=== PATIENT | female | born 1980 | race Caucasian/White ===

== ENCOUNTER 2016-12-25 03:02 | Inpatient (IN) | payer OTHER ==
[2016-12-25] MEDS ORDERED: Lidocaine 1% 50 ML MDV INJECT PRN (03:31)
[2016-12-25] MEDS ORDERED: Terbutaline 1 MG/ML SDV SUBCUT PRN (03:31)
[2016-12-25] MEDS ORDERED: Carboprost Tromethamine 250 MCG/1 ML Amp IM PRN (03:31)
[2016-12-25] MEDS ORDERED: Sodium Chloride 0.9% 10 ML Syringe FLUSH PRN (03:31)
[2016-12-25] MEDS ORDERED: Misoprostol 200 MCG Tab PO PRN (03:31)
[2016-12-25] MEDS ORDERED: Nalbuphine 10 MG/1 ML Vial IVPUSH PRN (03:31)
[2016-12-25] MEDS ORDERED: Water For Irrigation,Sterile 1,000 ML Container IRR PRN (03:31)
[2016-12-25] MEDS ORDERED: Sodium Chloride 0.9% 2.5 ML Syringe FLUSH PRN (03:31)
[2016-12-25] MEDS ORDERED: Misoprostol 25 MCG (1/4 of 100 MCG) Tab VAG PRN (03:31)
[2016-12-25] MEDS ORDERED: Butorphanol 1 MG/ML SDV IVPUSH PRN (03:31)
[2016-12-25] MEDS ORDERED: Methylergonovine 0.2 MG/1 ML Amp IM PRN ×2 (03:31→17:57)
[2016-12-25] MEDS ORDERED: Ampicillin 2 GM in Sodium Chloride 0.9% 100 ML IV STA (03:31)
[2016-12-25] MEDS ORDERED: Oxytocin/Lactated Ringers 30 UNIT/500 ML BAG IV SCH ×2 (03:45)
[2016-12-25] MEDS: Lactated Ringers 1,000 ML IV SCH ×3 (04:04→15:34)
[2016-12-25] MEDS: Ampicillin 1 GM in Sodium Chloride 0.9% 50 ML IV SCH ×2 (08:04→12:05)
[2016-12-25] MEDS ORDERED: fentaNYL 100 MCG/2 ML SDV ONE (14:49)
[2016-12-25] MEDS ORDERED: Ropivacaine HCl/PF 100 ML ONE (14:49)
[2016-12-25] MEDS ORDERED: Witch Hazel Medicated Pads 40/Jar TOP PRN (17:57)
[2016-12-25] MEDS ORDERED: Lanolin 100% Cream 7 GM Tube TOP PRN (17:57)
[2016-12-25] MEDS ORDERED: Acetaminophen 500 MG Tab PO PRN (17:57)
[2016-12-25] MEDS ORDERED: oxyCODONE 5 MG Tab PO PRN (17:57)
[2016-12-25] MEDS ORDERED: Benzocaine/Menthol 20%-0.5% Spray 78 GM Cannister TOP PRN (17:57)
[2016-12-25] MEDS ORDERED: Bisacodyl 10 MG Supp RECTAL PRN (17:57)
--- NOTE | 2016-12-25 18:49 | PCM.PREANE ---
Preanesthetic Assessment - Anesthesia/Transfusion/Family Hx Anesthesia History: Prior Anesthesia Without Reaction Transfusion History: Prior Transfusion Without Reaction - Review of Systems General: No Symptoms Pulmonary: No Symptoms Cardiovascular: No Symptoms Gastrointestinal: No symptoms Neurological: No Symptoms Other: Reports: None - Physical Assessment Height: 5 ft 3 in Weight: 73.482 kg ASA Class: 3 Mental Status: Alert & Oriented x3 Airway Class: Mallampati = 4 Dentition: Reports: Normal Dentition Thyro-Mental Finger Breadths: 1 Mouth Opening Finger Breadths: 2 ROM/Head Extension: Other (Severely limited) Lungs: Clear to auscultation, Normal respiratory effort Cardiovascular: Regular Rate, Regular Rhythm - Lab Values: Laboratory Last Values WBC 9.22 K/uL (4.0-11.0) 12/25/16 03:58 RBC 4.02 M/uL (4.30-5.90) L 12/25/16 03:58 Hgb 12.7 g/dL (12.0-16.0) 12/25/16 03:58 Hct 37.7 % (36.0-46.0) 12/25/16 03:58 MCV 93.8 fL (80.0-98.0) 12/25/16 03:58 MCH 31.6 pg (27.0-32.0) 12/25/16 03:58 MCHC 33.7 g/dL (31.0-37.0) 12/25/16 03:58 RDW Std Deviation 46.1 fl (28.0-62.0) 12/25/16 03:58 RDW Coeff of Maye 14 % (11.0-15.0) 12/25/16 03:58 Plt Count 206 K/uL (150-400) 12/25/16 03:58 MPV 10.30 fL (7.40-12.00) 12/25/16 03:58 Nucleated RBC % 0.0 /100WBC 12/25/16 03:58 Nucleated RBCs # 0 K/uL 12/25/16 03:58 Blood Type O POSITIVE 12/25/16 03:58 Antibody Screen NEGATIVE 12/25/16 03:58 - Allergies Allergies/Adverse Reactions: Allergies Allergy/AdvReac Type Severity Reaction Status Date / Time No Known Allergies Allergy Verified 04/21/14 13:30 - Acknowledgements Anesthesia Type Planned: Epidural Pt an Appropriate Candidate for the Planned Anesthesia: Yes Alternatives and Risks of Anesthesia Discussed w Pt/Guardian: Yes Pt/Guardian Understands and Agrees with Anesthesia Plan: Yes PreAnesthesia Questionnaire HEENT History: Reports: None Cardiovascular History: Reports: Heart Murmur, Other (See Below) Other Cardiovascular History: 2016 - NSR on EKG. 2016 - Echo EF 65-70%, Hyperdynamic LV systolic function Respiratory History: Reports: None Gastrointestinal History: Reports: GERD Genitourinary History: Reports: None DIGITAL MEDIA ANALYST History: Reports: : 2 Para: 1 LMP (Approximate): Musculoskeletal History: Reports: Other (See Below) Other Musculoskeletal History: Klippel-feil syndrome Neurological History: Reports: None Psychiatric History: Reports: None Endocrine/Metabolic History: Reports: None Hematologic History: Reports: None Immunologic History: Reports: None Oncologic (Cancer) History: Reports: None Dermatologic History: Reports: None - Infectious Disease History Infectious Disease History: Reports: None - Past Surgical History Cardiovascular Surgical History: Reports: Other (See Below) Other Cardiovascular Surgeries/Procedures: Repair of holes in heart as a infant - SUBSTANCE USE Smoking Status *Q: Never Smoker Tobacco Use Within Last Twelve Months: No Second Hand Smoke Exposure: No Recreational Drug Use History: No - HOME MEDS Home Medications: Home Meds Methimazole 5 mg PO DAILY 04/21/14 [History] - CURRENT (IN HOUSE) MEDS Current Meds: Current Medications Acetaminophen (Tylenol Extra Strength) 1,000 mg PO Q4H PRN PRN Reason: Pain Benzocaine/Menthol (Dermoplast Pain Relief 20%-0.5% Boring) 78 gm TOP ASDIRECTED PRN PRN Reason: Perineal Comfort Measure Bisacodyl (Dulcolax) 10 mg RECTAL .ONCE PRN PRN Reason: Constipation Docusate Sodium (Colace) 100 mg PO BID PRN PRN Reason: Constipation Emollient Ointment (Lansinoh Hpa) 0 gm TOP ASDIRECTED PRN PRN Reason: Sore Nipples Ibuprofen (Motrin) 800 mg PO Q6H PRN PRN Reason: Pain Methimazole (Methimazole) 5 mg PO DAILY YVONNE Methylergonovine Maleate (Methergine) 0.2 mg IM .ONCE PRN PRN Reason: Excessive Vaginal Bleeding Oxycodone HCl (Oxycodone) 5 mg PO Q2H PRN PRN Reason: Pain Witch Lulu (Tucks) 1 pad TOP ASDIRECTED PRN PRN Reason: comfort care Discontinued Medications Butorphanol Tartrate (Stadol) 1 mg IVPUSH ASDIRECTED PRN PRN Reason: Pain Carboprost Tromethamine (Hemabate Ds) 250 mcg IM ASDIRECTED PRN PRN Reason: Post Hemorrhage Fentanyl (Sublimaze) Confirm Administered Dose 100 mcg .ROUTE .STK-MED ONE Stop: 12/25/16 14:50 Ampicillin Sodium 2 gm/ Sodium (Chloride) 100 mls @ 200 mls/hr IV ONETIME STA Stop: 12/25/16 04:00 Last Admin: 12/25/16 04:10 Dose: 200 mls/hr Lactated Ringer's (Ringers, Lactated) 1,000 mls @ 150 mls/hr IV ASDIRECTED YVONNE Last Admin: 12/25/16 15:34 Dose: 150 mls/hr Oxytocin/Lactated Ringer's (Pitocin In Lr 30 Units/500 Ml) 30 unit in 500 mls @ 2 mls/hr IV TITRATE YVONNE; 2 MUNITS/MIN PRN Reason: Protocol Last Titration: 12/25/16 16:05 Dose: 5 munits/min, 5 mls/hr Oxytocin/Lactated Ringer's (Pitocin In Lr 30 Units/500 Ml) 30 unit in 500 mls @ 999 mls/hr IV TITRATE YVONNE PRN Reason: 999 MUNITS/MIN Stop: 12/25/16 04:16 Ampicillin Sodium 1 gm/ Sodium (Chloride) 50 mls @ 100 mls/hr IV Q4H COUNTS INCLUDE 234 BEDS AT THE [facility] Last Admin: 12/25/16 12:05 Dose: 100 mls/hr Ropivacaine (Naropin 0.2%) Confirm Administered Dose 100 mls @ as directed .ROUTE .STK-MED ONE Stop: 12/25/16 14:50 Lidocaine HCl (Xylocaine 1%) 50 ml INJECT .ONCE PRN PRN Reason: Laceration repair Methylergonovine Maleate (Methergine) 0.2 mg IM ASDIRECTED PRN PRN Reason: Post Hemorrhage Misoprostol (Cytotec) 25 mcg VAG Q6H PRN PRN Reason: Cervical Ripening Stop: 12/26/16 21:32 Last Admin: 12/25/16 04:11 Dose: 25 mcg Misoprostol (Cytotec) 200 mcg PO .ONCE PRN PRN Reason: Post Hemorrhage Nalbuphine HCl (Nubain) 10 mg IVPUSH ASDIRECTED PRN PRN Reason: Pain (severe 7-10) Stop: 12/27/16 03:32 Sodium Chloride (Saline Flush) 10 ml FLUSH ASDIRECTED PRN PRN Reason: Keep Vein Open Sodium Chloride (Saline Flush) 2.5 ml FLUSH ASDIRECTED PRN PRN Reason: Keep Vein Open Sterile Water (Sterile Water For Irrigation) 1,000 ml IRR ASDIRECTED PRN PRN Reason: delivery Last Admin: 12/25/16 18:24 Dose: 1,000 ml Terbutaline Sulfate (Brethine) 0.25 mg SUBCUT ASDIRECTED PRN PRN Reason: Tacysystole
[2016-12-25] MEDS: Ibuprofen 800 MG Tab PO PRN (23:29)
--- NOTE | 2016-12-25 23:50 | OR ---
SURGEON: Yenni Collins M.D. DATE OF PROCEDURE: 12/25/2016 PREOPERATIVE DIAGNOSIS: A 41 and 2/7 weeks' intrauterine , postdates induction, and group B strep positive. POSTOPERATIVE DIAGNOSIS: A 41 and 2/7 weeks' intrauterine , postdates induction, and group B strep positive. PROCEDURE: 1. Pitocin induction term spontaneous vaginal delivery. 2. Repair of second-degree laceration. ANESTHESIA: Epidural. ESTIMATED BLOOD LOSS: Less than 200 mL. FINDINGS: Liveborn male. score 8 and 9. Weight is pending at the time of dictation. There was a small second-degree perineal laceration at five o'clock, which was repaired. The placenta was delivered spontaneously, Schultze intact with 3 vessels. Note was made of a velamentous cord insertion. COMPLICATIONS: None known. DISPOSITION: Stable to recovery. BRIEF HISTORY: This is a 36-year-old female. She is G2, P1-0-0-1. She presents at 41 and 2/7 weeks' gestation for induction of labor. care has essentially been uncomplicated. She has hyperthyroidism and has been treated with methimazole during the . She also has advanced maternal age, but declined invasive testing. She presents at 41 and 2/7 weeks' gestation for postdates induction of labor. She received a single dose of Cytotec, Pitocin was then initiated. She received three doses of ampicillin following the 3rd dose she was 2 to 3 cm dilated, she had been started on Pitocin, artificial rupture membranes was performed with clear fluid noted. She received an epidural for pain control. She had category 1 and episodes of category 2 heart tones throughout labor. Primarily, the category 2 heart tones were related to deep variable decelerations, which recovered. She then had Pitocin decreased to 5 milliunits per minute. She then had a 3 to 5 minutes deceleration and Pitocin was discontinued. At this time, she was complete left occiput anterior position and she was instructed to begin to push. At the same time, she was consented for possible vacuum assisted vaginal delivery. However, she was pushing effectively in between pushing the heart tones recovered therefore she was allowed to continue to push for a total of 30 minutes. DESCRIPTION OF PROCEDURE: The patient in dorsal lithotomy position, the patient pushed over 30-minute time period to a 5+ station, at which time the head was delivered spontaneously and atraumatically over the perineum with support with subsequent delivery of the 's shoulders and body without any difficulty. The infant was bulb suctioned by nose and mouth. The cord was clamped x2 and cut and the was handed to the mother in the presence of the nurse attending delivery. The was a liveborn male, score 8 and 9. Weight is pending at the time of this dictation. Cord blood was collected for cord ABGs as well as routine cord blood sampling. Pitocin was initiated after delivery of the to assist with delivery of the placenta, which was delivered spontaneously, Schultze intact with 3 vessels. The placenta was noted to have a velamentous cord insertion. Upon inspection of the pelvis and perineum, there were no periurethral, vaginal sidewall, cervical, or rectal lacerations. There was a very small second-degree perineal laceration at 5 o'clock that was repaired with two deep running sutures of 3-0 Caprosyn followed by subcuticular suture of the same. Final sponge, needle, and instrument count were correct. There were no known complications. The infant and mother are in LDRP in good condition. NANCY FLOREZ /[id number]
--- NOTE | 2016-12-26 08:10 | PCM.PNPP ---
<Yanet Gallo - Last Filed: 12/26/16 08:07> - General Info Date of Service: 12/26/16 Functional Status: Reports: pain controlled, tolerating diet, ambulating, urinating - Review of Systems General: Denies: Fever, Weakness Pulmonary: Denies: shortness of breath, pleuritic chest pain, cough Cardiovascular: Denies: Chest Pain, Palpitations, Dyspnea on Exertion Gastrointestinal: Denies: Abdominal pain Psychiatric: Reports: no symptoms - General Info Date of Service: 12/26/16 - Patient Data Vital Signs - most recent: Last Vital Signs Temp 36.6 C 12/26/16 04:00 Pulse 77 12/26/16 04:00 Resp 16 12/26/16 04:00 BP 132/77 12/26/16 04:00 Pulse Ox 99 12/26/16 04:00 Weight - most recent: 73.482 kg Lab Results - last 24 hrs: Laboratory Results - last 24 hr 12/26/16 Range/Units 04:26 Hgb 11.1 L (12.0-16.0) g/dL Hct 33.8 L (36.0-46.0) % Med Orders - Current: Current Medications Acetaminophen (Tylenol Extra Strength) 1,000 mg PO Q4H PRN PRN Reason: Pain Benzocaine/Menthol (Dermoplast Pain Relief 20%-0.5% [place]) 78 gm TOP ASDIRECTED PRN PRN Reason: Perineal Comfort Measure Last Admin: 12/25/16 23:28 Dose: 78 gm Bisacodyl (Dulcolax) 10 mg RECTAL .ONCE PRN PRN Reason: Constipation Docusate Sodium (Colace) 100 mg PO BID PRN PRN Reason: Constipation Emollient Ointment (Lansinoh Hpa) 0 gm TOP ASDIRECTED PRN PRN Reason: Sore Nipples Ibuprofen (Motrin) 800 mg PO Q6H PRN PRN Reason: Pain Last Admin: 12/25/16 23:29 Dose: 800 mg Methimazole (Methimazole) 5 mg PO DAILY YVONNE Methylergonovine Maleate (Methergine) 0.2 mg IM .ONCE PRN PRN Reason: Excessive Vaginal Bleeding Oxycodone HCl (Oxycodone) 5 mg PO Q2H PRN PRN Reason: Pain Witch Lulu (Tucks) 1 pad TOP ASDIRECTED PRN PRN Reason: comfort care Last Admin: 12/25/16 23:28 Dose: 1 pad Discontinued Medications Butorphanol Tartrate (Stadol) 1 mg IVPUSH ASDIRECTED PRN PRN Reason: Pain Carboprost Tromethamine (Hemabate Ds) 250 mcg IM ASDIRECTED PRN PRN Reason: Post Hemorrhage Fentanyl (Sublimaze) Confirm Administered Dose 100 mcg .ROUTE .STK-MED ONE Stop: 12/25/16 14:50 Ampicillin Sodium 2 gm/ Sodium (Chloride) 100 mls @ 200 mls/hr IV ONETIME STA Stop: 12/25/16 04:00 Last Admin: 12/25/16 04:10 Dose: 200 mls/hr Lactated Ringer's (Ringers, Lactated) 1,000 mls @ 150 mls/hr IV ASDIRECTED YVONNE Last Admin: 12/25/16 15:34 Dose: 150 mls/hr Oxytocin/Lactated Ringer's (Pitocin In Lr 30 Units/500 Ml) 30 unit in 500 mls @ 2 mls/hr IV TITRATE YVONNE; 2 MUNITS/MIN PRN Reason: Protocol Last Titration: 12/25/16 16:05 Dose: 5 munits/min, 5 mls/hr Oxytocin/Lactated Ringer's (Pitocin In Lr 30 Units/500 Ml) 30 unit in 500 mls @ 999 mls/hr IV TITRATE YVONNE PRN Reason: 999 MUNITS/MIN Stop: 12/25/16 04:16 Ampicillin Sodium 1 gm/ Sodium (Chloride) 50 mls @ 100 mls/hr IV Q4H YVONNE Last Admin: 12/25/16 12:05 Dose: 100 mls/hr Ropivacaine (Naropin 0.2%) Confirm Administered Dose 100 mls @ as directed .ROUTE .STK-MED ONE Stop: 12/25/16 14:50 Lidocaine HCl (Xylocaine 1%) 50 ml INJECT .ONCE PRN PRN Reason: Laceration repair Methylergonovine Maleate (Methergine) 0.2 mg IM ASDIRECTED PRN PRN Reason: Post Hemorrhage Misoprostol (Cytotec) 25 mcg VAG Q6H PRN PRN Reason: Cervical Ripening Stop: 12/26/16 21:32 Last Admin: 12/25/16 04:11 Dose: 25 mcg Misoprostol (Cytotec) 200 mcg PO .ONCE PRN PRN Reason: Post Hemorrhage Nalbuphine HCl (Nubain) 10 mg IVPUSH ASDIRECTED PRN PRN Reason: Pain (severe 7-10) Stop: 12/27/16 03:32 Sodium Chloride (Saline Flush) 10 ml FLUSH ASDIRECTED PRN PRN Reason: Keep Vein Open Sodium Chloride (Saline Flush) 2.5 ml FLUSH ASDIRECTED PRN PRN Reason: Keep Vein Open Sterile Water (Sterile Water For Irrigation) 1,000 ml IRR ASDIRECTED PRN PRN Reason: delivery Last Admin: 12/25/16 18:24 Dose: 1,000 ml Terbutaline Sulfate (Brethine) 0.25 mg SUBCUT ASDIRECTED PRN PRN Reason: Tacysystole - Interaction Disposition, : to Nursery Feeding: Attempted ; Nursed Fair/Poor Support Person: - Recovery Exam Fundal Tone: Firm Fundal Level: At Umbilicus Fundal Placement: Midline Lochia Amount: Scant Lochia Color: Rubra/Red Perineum Description: Edematous Episiotomy/Laceration: Approximated Bladder Status: Nonpalpable Urinary Elimination: Voided - Exam General: alert, oriented Neck: supple Lungs: Clear to auscultation, Normal respiratory effort Abdomen: bowel sounds present, soft, no tenderness, no distension Extremities: no edema Psy/Mental Status: alert, normal affect, normal mood - Problem List & Annotations (1) Vaginal delivery SNOMED Code(s): 971847040 Code(s): O80 - ENCOUNTER FOR FULL-TERM UNCOMPLICATED DELIVERY Status: Acute Current Visit: Yes - Problem List Review Problem List Initiated/Reviewed/Updated: Yes - Assessment Assessment:: PPD #1 from . Minimal pain and lochia. Work on breast feeding today. Possible discharge this evening. - Plan Plan:: Continue routine post- cares. Discharge instruction reviewed. <Yenni Collins - Last Filed: 12/26/16 08:20> - Patient Data Vital Signs - most recent: Last Vital Signs Temp 36.6 C 12/26/16 04:00 Pulse 77 12/26/16 04:00 Resp 16 12/26/16 04:00 BP 132/77 12/26/16 04:00 Pulse Ox 99 12/26/16 04:00 Lab Results - last 24 hrs: Laboratory Results - last 24 hr 12/26/16 Range/Units 04:26 Hgb 11.1 L (12.0-16.0) g/dL Hct 33.8 L (36.0-46.0) % Med Orders - Current: Current Medications Acetaminophen (Tylenol Extra Strength) 1,000 mg PO Q4H PRN PRN Reason: Pain Benzocaine/Menthol (Dermoplast Pain Relief 20%-0.5% [place]) 78 gm TOP ASDIRECTED PRN PRN Reason: Perineal Comfort Measure Last Admin: 12/25/16 23:28 Dose: 78 gm Bisacodyl (Dulcolax) 10 mg RECTAL .ONCE PRN PRN Reason: Constipation Docusate Sodium (Colace) 100 mg PO BID PRN PRN Reason: Constipation Emollient Ointment (Lansinoh Hpa) 0 gm TOP ASDIRECTED PRN PRN Reason: Sore Nipples Ibuprofen (Motrin) 800 mg PO Q6H PRN PRN Reason: Pain Last Admin: 12/25/16 23:29 Dose: 800 mg Methimazole (Methimazole) 5 mg PO DAILY YVONNE Methylergonovine Maleate (Methergine) 0.2 mg IM .ONCE PRN PRN Reason: Excessive Vaginal Bleeding Oxycodone HCl (Oxycodone) 5 mg PO Q2H PRN PRN Reason: Pain Witch Lulu (Tucks) 1 pad TOP ASDIRECTED PRN PRN Reason: comfort care Last Admin: 12/25/16 23:28 Dose: 1 pad Discontinued Medications Butorphanol Tartrate (Stadol) 1 mg IVPUSH ASDIRECTED PRN PRN Reason: Pain Carboprost Tromethamine (Hemabate Ds) 250 mcg IM ASDIRECTED PRN PRN Reason: Post Hemorrhage Fentanyl (Sublimaze) Confirm Administered Dose 100 mcg .ROUTE .STK-MED ONE Stop: 12/25/16 14:50 Ampicillin Sodium 2 gm/ Sodium (Chloride) 100 mls @ 200 mls/hr IV ONETIME STA Stop: 12/25/16 04:00 Last Admin: 12/25/16 04:10 Dose: 200 mls/hr Lactated Ringer's (Ringers, Lactated) 1,000 mls @ 150 mls/hr IV ASDIRECTED YVONNE Last Admin: 12/25/16 15:34 Dose: 150 mls/hr Oxytocin/Lactated Ringer's (Pitocin In Lr 30 Units/500 Ml) 30 unit in 500 mls @ 2 mls/hr IV TITRATE YVONNE; 2 MUNITS/MIN PRN Reason: Protocol Last Titration: 12/25/16 16:05 Dose: 5 munits/min, 5 mls/hr Oxytocin/Lactated Ringer's (Pitocin In Lr 30 Units/500 Ml) 30 unit in 500 mls @ 999 mls/hr IV TITRATE YVONNE PRN Reason: 999 MUNITS/MIN Stop: 12/25/16 04:16 Ampicillin Sodium 1 gm/ Sodium (Chloride) 50 mls @ 100 mls/hr IV Q4H YVONNE Last Admin: 12/25/16 12:05 Dose: 100 mls/hr Ropivacaine (Naropin 0.2%) Confirm Administered Dose 100 mls @ as directed .ROUTE .[facility] ONE Stop: 12/25/16 14:50 Lidocaine HCl (Xylocaine 1%) 50 ml INJECT .ONCE PRN PRN Reason: Laceration repair Methylergonovine Maleate (Methergine) 0.2 mg IM ASDIRECTED PRN PRN Reason: Post Hemorrhage Misoprostol (Cytotec) 25 mcg VAG Q6H PRN PRN Reason: Cervical Ripening Stop: 12/26/16 21:32 Last Admin: 12/25/16 04:11 Dose: 25 mcg Misoprostol (Cytotec) 200 mcg PO .ONCE PRN PRN Reason: Post Hemorrhage Nalbuphine HCl (Nubain) 10 mg IVPUSH ASDIRECTED PRN PRN Reason: Pain (severe 7-10) Stop: 12/27/16 03:32 Sodium Chloride (Saline Flush) 10 ml FLUSH ASDIRECTED PRN PRN Reason: Keep Vein Open Sodium Chloride (Saline Flush) 2.5 ml FLUSH ASDIRECTED PRN PRN Reason: Keep Vein Open Sterile Water (Sterile Water For Irrigation) 1,000 ml IRR ASDIRECTED PRN PRN Reason: delivery Last Admin: 12/25/16 18:24 Dose: 1,000 ml Terbutaline Sulfate (Brethine) 0.25 mg SUBCUT ASDIRECTED PRN PRN Reason: Tacysystole - My Orders Last 24 Hours: My Active Orders 12/25/16 17:57 Patient Status [ADT] Routine May Shower [RC] ASDIRECTED Up ad Laine [RC] ASDIRECTED Vital Signs [RC] PER UNIT ROUTINE Acetaminophen [Tylenol Extra Strength] 1,000 mg PO Q4H PRN Benzocaine/Menthol [Dermoplast Pain Relief 20%-0.5% [place]] 78 gm TOP ASDIRECTED PRN Bisacodyl [Dulcolax] 10 mg RECTAL .ONCE PRN Docusate Sodium [Colace] 100 mg PO BID PRN Ibuprofen [Motrin] 800 mg PO Q6H PRN Lanolin [Lansinoh HPA] See Dose Instructions TOP ASDIRECTED PRN Methylergonovine [Methergine] 0.2 mg IM .ONCE PRN Witch Lulu [Tucks] 1 pad TOP ASDIRECTED PRN oxyCODONE 5 mg PO Q2H PRN Assess Lochia [WOMSER] Per Unit Routine Assess Uterine Involution [WOMSER] Per Unit Routine Peripheral IV Discontinue [OM.PC] Routine Resuscitation Status Routine 12/25/16 17:58 Perineal Care [OM.PC] Per Unit Routine 12/25/16 Dinner Regular Diet [DIET] 12/26/16 09:00 Methimazole 5 mg PO DAILY - Plan Plan:: Patient was seen by me and I agree with above, continue follow up with veterinary medicine teacher for hyperthyroidism.
[2016-12-26] MEDS ORDERED: Methimazole 5 MG Tab PO SCH (09:00)
[2016-12-26] MEDS: Docusate Sodium 100 MG Cap PO PRN (11:12)
[2016-12-26] MEDS: Ibuprofen 800 MG Tab PO PRN (11:12)
--- NOTE | 2016-12-26 13:42 | PCM48HPAN ---
Post Anesthesia Note - EVALUATION WITHIN 48HRS OF ANESTHETIC Vital Signs in Normal Range: Yes Patient Participated in Evaluation: Yes Respiratory Function Stable: Yes Airway Patent: Yes Cardiovascular Function Stable: Yes Hydration Status Stable: Yes Pain Control Satisfactory: Yes Nausea and Vomiting Control Satisfactory: Yes Mental Status Recovered: Yes - COMMENTS/OBSERVATIONS Free Text/Narrative:: Denies any complaints at this time
[2016-12-27] MEDS: Ibuprofen 800 MG Tab PO PRN (00:30)
[2016-12-27 06:30] VITALS: BP 130/69
--- NOTE | 2016-12-27 07:54 | PCM.PNPP ---
- General Info Functional Status: Reports: pain controlled, tolerating diet, ambulating, urinating - Review of Systems General: Reports: No Symptoms HEENT: Reports: no symptoms Pulmonary: Reports: no symptoms Cardiovascular: Reports: No Symptoms Gastrointestinal: Reports: No symptoms Genitourinary: Reports: no symptoms Musculoskeletal: Reports: no symptoms Skin: Reports: no symptoms Neurological: Reports: No Symptoms Psychiatric: Reports: no symptoms - Patient Data Vital Signs - most recent: Last Vital Signs Temp 37.2 C 12/27/16 04:00 Pulse 68 12/27/16 04:00 Resp 15 12/27/16 04:00 BP 130/69 12/27/16 04:00 Pulse Ox 98 12/27/16 04:00 Weight - most recent: 73.482 kg Med Orders - Current: Current Medications Acetaminophen (Tylenol Extra Strength) 1,000 mg PO Q4H PRN PRN Reason: Pain Benzocaine/Menthol (Dermoplast Pain Relief 20%-0.5% [place]) 78 gm TOP ASDIRECTED PRN PRN Reason: Perineal Comfort Measure Last Admin: 12/25/16 23:28 Dose: 78 gm Bisacodyl (Dulcolax) 10 mg RECTAL .ONCE PRN PRN Reason: Constipation Docusate Sodium (Colace) 100 mg PO BID PRN PRN Reason: Constipation Last Admin: 12/26/16 11:12 Dose: 100 mg Emollient Ointment (Lansinoh Hpa) 0 gm TOP ASDIRECTED PRN PRN Reason: Sore Nipples Last Admin: 12/26/16 11:15 Dose: 1 applic Ibuprofen (Motrin) 800 mg PO Q6H PRN PRN Reason: Pain Last Admin: 12/27/16 00:30 Dose: 800 mg Methimazole (Methimazole) 5 mg PO DAILY YVONNE Methylergonovine Maleate (Methergine) 0.2 mg IM .ONCE PRN PRN Reason: Excessive Vaginal Bleeding Oxycodone HCl (Oxycodone) 5 mg PO Q2H PRN PRN Reason: Pain Witch Lulu (Tucks) 1 pad TOP ASDIRECTED PRN PRN Reason: comfort care Last Admin: 12/25/16 23:28 Dose: 1 pad Discontinued Medications Butorphanol Tartrate (Stadol) 1 mg IVPUSH ASDIRECTED PRN PRN Reason: Pain Carboprost Tromethamine (Hemabate Ds) 250 mcg IM ASDIRECTED PRN PRN Reason: Post Hemorrhage Fentanyl (Sublimaze) Confirm Administered Dose 100 mcg .ROUTE .STK-MED ONE Stop: 12/25/16 14:50 Ampicillin Sodium 2 gm/ Sodium (Chloride) 100 mls @ 200 mls/hr IV ONETIME STA Stop: 12/25/16 04:00 Last Admin: 12/25/16 04:10 Dose: 200 mls/hr Lactated Ringer's (Ringers, Lactated) 1,000 mls @ 150 mls/hr IV ASDIRECTED YVONNE Last Admin: 12/25/16 15:34 Dose: 150 mls/hr Oxytocin/Lactated Ringer's (Pitocin In Lr 30 Units/500 Ml) 30 unit in 500 mls @ 2 mls/hr IV TITRATE YVONNE; 2 MUNITS/MIN PRN Reason: Protocol Last Titration: 12/25/16 16:05 Dose: 5 munits/min, 5 mls/hr Oxytocin/Lactated Ringer's (Pitocin In Lr 30 Units/500 Ml) 30 unit in 500 mls @ 999 mls/hr IV TITRATE YVONNE PRN Reason: 999 MUNITS/MIN Stop: 12/25/16 04:16 Ampicillin Sodium 1 gm/ Sodium (Chloride) 50 mls @ 100 mls/hr IV Q4H YVONNE Last Admin: 12/25/16 12:05 Dose: 100 mls/hr Ropivacaine (Naropin 0.2%) Confirm Administered Dose 100 mls @ as directed .ROUTE .Mavrx-MED ONE Stop: 12/25/16 14:50 Lidocaine HCl (Xylocaine 1%) 50 ml INJECT .ONCE PRN PRN Reason: Laceration repair Methylergonovine Maleate (Methergine) 0.2 mg IM ASDIRECTED PRN PRN Reason: Post Hemorrhage Misoprostol (Cytotec) 25 mcg VAG Q6H PRN PRN Reason: Cervical Ripening Stop: 12/26/16 21:32 Last Admin: 12/25/16 04:11 Dose: 25 mcg Misoprostol (Cytotec) 200 mcg PO .ONCE PRN PRN Reason: Post Hemorrhage Nalbuphine HCl (Nubain) 10 mg IVPUSH ASDIRECTED PRN PRN Reason: Pain (severe 7-10) Stop: 12/27/16 03:32 Sodium Chloride (Saline Flush) 10 ml FLUSH ASDIRECTED PRN PRN Reason: Keep Vein Open Sodium Chloride (Saline Flush) 2.5 ml FLUSH ASDIRECTED PRN PRN Reason: Keep Vein Open Sterile Water (Sterile Water For Irrigation) 1,000 ml IRR ASDIRECTED PRN PRN Reason: delivery Last Admin: 12/25/16 18:24 Dose: 1,000 ml Terbutaline Sulfate (Brethine) 0.25 mg SUBCUT ASDIRECTED PRN PRN Reason: Tacysystole - Interaction Disposition, : in Room with Family Infant Interaction: Holding Infant Feeding: Attempted ; Nursed Fair/Poor Support Person: - Recovery Exam Fundal Tone: Firm Fundal Level: At Umbilicus Fundal Placement: Midline Lochia Amount: Scant Lochia Color: Rubra/Red Perineum Description: Intact, Minimal Bruising/Swelling Episiotomy/Laceration: Approximated Bladder Status: Voiding Urinary Elimination: Voided - Exam General: alert, oriented HEENT: Pupils equal Neck: supple Lungs: Clear to auscultation, Normal respiratory effort Cardiovascular: Regular Rate, Regular Rhythm Abdomen: bowel sounds present, soft, no tenderness, no distension Extremities: no edema Skin: warm, dry, intact Wound/Incisions: healing well Neurological: no new focal deficit Psy/Mental Status: alert, normal affect, normal mood - Problem List & Annotations (1) Vaginal delivery SNOMED Code(s): 321310090 Code(s): O80 - ENCOUNTER FOR FULL-TERM UNCOMPLICATED DELIVERY Status: Acute Current Visit: Yes - Problem List Review Problem List Initiated/Reviewed/Updated: Yes - My Orders Last 24 Hours: My Active Orders 12/26/16 09:00 Methimazole 5 mg PO DAILY - Assessment Assessment:: PPD #2 from . Minimal pain and lochia. is going well, minimal lochia, minimal pain would like to be discharged. Will switch to PTU while , she will notify Dr. Talbot of PTU use while for consideration of checking thyroid studies on baby in a few weeks. - Plan Plan:: Discharge instructions reviewed, dismiss to home today, follow up in 6 weeks.
[2016-12-27] MEDS: Docusate Sodium 100 MG Cap PO PRN (09:09)
== END 2016-12-27 12:05 | disposition home or self-care (01) | DRG 775 ==
LOC: MW.OBCHECK 03:02 → MW.OB 03:06 → MW.OBCHECK 03:31 → OBSVTOIN 17:57
PROVIDERS: ADMIT Obstetrics & Gynecology; ATTEND Obstetrics & Gynecology
PROC: 10E0XZZ Delivery of Products of Conception, External Approach (ICD-10-PCS; principal; 2016-12-25)
PROC: 0KQM0ZZ Repair Perineum Muscle, Open Approach (ICD-10-PCS; 2016-12-25)
PROC: 3E0P7GC Introduction of Other Therapeutic Substance into Female Reproductive, Via Natural or Artificial Opening (ICD-10-PCS; 2016-12-25)
PROC: 10907ZC Drainage of Amniotic Fluid, Therapeutic from Products of Conception, Via Natural or Artificial Opening (ICD-10-PCS; 2016-12-25)
DX: O48.0 Post-term pregnancy (principal); O70.1 Second degree perineal laceration during delivery; O99.284 Endocrine, nutritional and metabolic diseases complicating childbirth; Z3A.41 41 weeks gestation of pregnancy; Z37.0 Single live birth; Z22.330 Carrier of Group B streptococcus
CPT/HCPCS: 01967; 36415; 51703; 59025; 85014; 85018; 85027; 86850; 86900; 86901; A9270-GY; J0290; J2795; J3010; J7030; J7050; J7120

== ENCOUNTER 2017-05-25 15:56 | Emergency (ER) | payer OTHER ==
[2017-05-25 16:28] VITALS: BP 128/76
--- NOTE | 2017-05-25 17:09 | EDM.PDOC ---
ED HPI GENERAL MEDICAL PROBLEM - General Chief Complaint: Respiratory Problem Stated Complaint: COUGH SORE THROAT Time Seen by Provider: 05/25/17 17:00 Source of Information: Reports: Patient History Limitations: Reports: No Limitations - History of Present Illness INITIAL COMMENTS - FREE TEXT/NARRATIVE: HISTORY AND PHYSICAL: History of present illness: [Patient comes to the emergency room complaining of cough and cold symptoms for the past 3 days. Feels that her coughing has let up slightly today but overall is quite out of control. She is coughing so hard that she is vomiting. Cough is mostly dry and hacking. She's felt warm but not had any fever temp was 99 when she checked at home. no wheezing or difficulty breathing. She has no abdominal pain, sore throat or earaches. No headaches. No difficulty urinating or diarrhea. No muscle aches or pains.] Review of systems: As per history of present illness and below otherwise all systems reviewed and negative. Past medical history: As per history of present illness and as reviewed below otherwise noncontributory. Surgical history: As per history of present illness and as reviewed below otherwise noncontributory. Social history: No reported history of drug or alcohol abuse. Family history: As per history of present illness and as reviewed below otherwise noncontributory. Physical exam: HEENT: Atraumatic, normocephalic. TMs are pearly monteiro and without effusion bilaterally. Nares are patent and without discharge. Oral mucous membranes are pink and moist. No tonsillar swelling erythema or exudate. Lungs: Clear to auscultation, breath sounds equal bilaterally. No wheezing. Heart: S1S2, regular rate and rhythm. Abdomen: Soft, nondistended, nontender. Negative for masses, guarding or rebound. No CVA tenderness. Pelvis: Stable nontender. Genitourinary: Deferred. Rectal: Deferred. Extremities: Atraumatic in appearance.Neurovascular unremarkable. Neuro: Awake, alert, oriented. Motor and sensory unremarkable throughout. Exam nonfocal. Diagnostics: [Influenza swab] Impression: [Viral illness] Plan: [Patient is notified that influenza swab is negative. We discussed that her symptoms are viral in nature. Recommend pushing fluids, get plenty of rest, Robitussin or Delsym cough syrup as needed. Plain Mucinex as needed. Strict return precautions are reviewed with patient.] Definitive disposition and diagnosis as appropriate pending reevaluation and review of above. Throat Pain Score (Numeric/FACES): 3 - Related Data Allergies Allergy/AdvReac Type Severity Reaction Status Date / Time No Known Allergies Allergy Verified 05/25/17 16:28 Home Meds: Home Meds . [No Known Home Meds] 05/25/17 [History] Past Medical History - Past Health History Medical/Surgical History: Denies Medical/Surgical History Endocrine/Metabolic History: Reports: Other (See Below) Other Endocrine/Metabolic History: Graves disease - Infectious Disease History Infectious Disease History: Reports: Chicken Pox, MRSA Social & Family History - Family History Family Medical History: Noncontributory - Tobacco Use Smoking Status *Q: Never Smoker - Recreational Drug Use Recreational Drug Use: No ED ROS GENERAL - Review of Systems Review Of Systems: ROS reveals no pertinent complaints other than HPI. ED EXAM, GENERAL - Physical Exam Exam: See Below Course - Vital Signs Last Recorded V/S: Last Vital Signs Temp 98.6 F 05/25/17 16:25 Pulse 78 05/25/17 16:25 Resp 18 05/25/17 16:25 BP 128/76 05/25/17 16:25 Pulse Ox 97 05/25/17 16:25 Departure - Departure Time of Disposition: 18:05 Disposition: Home, Self-Care 01 Condition: Good Clinical Impression: Viral illness - Discharge Information Referrals: Chacha Ford, [employer] CLERK/SPECIALIST [Primary Care Provider] - Forms: ED Department Discharge Additional Instructions: The following information is given to patients seen in the emergency department who are being discharged to home. This information is to outline your options for follow-up care. We provide all patients seen in our emergency department with a follow-up referral. The need for follow-up, as well as the timing and circumstances, are variable depending upon the specifics of your emergency department visit. If you don't have a primary care physician on staff, we will provide you with a referral. We always advise you to contact your personal physician following an emergency department visit to inform them of the circumstance of the visit and for follow-up with them and/or the need for any referrals to a consulting specialist. The emergency department will also refer you to a specialist when appropriate. This referral assures that you have the opportunity for follow-up care with a specialist. All of these measure are taken in an effort to provide you with optimal care, which includes your follow-up. Under all circumstances we always encourage you to contact your private physician who remains a resource for coordinating your care. When calling for follow-up care, please make the office aware that this follow-up is from your recent emergency room visit. If for any reason you are refused follow-up, please contact the [facility] emergency department at and asked to speak to the emergency department charge nurse. [facility] Primary Care [address] [place] [id number] Follow-up with your primary care provider at the clinic listed above in 48-72 hours. Push fluids, get plenty of rest, Tylenol or ibuprofen for discomfort. This may be beneficial for cough. Robitussin or Delsym as needed. Return to ER as needed as discussed.
== END 2017-05-25 18:10 | disposition home or self-care (01) ==
LOC: MW.ED 15:56 → MERGE 15:56 → MW.ED 18:10
DX: B34.9 Viral infection, unspecified (principal)
CPT/HCPCS: 87804; 99283

== ENCOUNTER 2020-11-29 08:09 | Day surgery (SDC) | payer OTHER ==
[~2020-11-29 08:09] MED LIST: Lactated Ringers 1,000 ML IV SCH; Midazolam 1 MG/ML 2 ML SDV ONE; Propofol 200 MG/20 ML SDV ONE; fentaNYL 100 MCG/2 ML SDV ONE
--- NOTE | 2020-11-29 08:59 | PCM.PREANE ---
Preanesthetic Assessment - Anesthesia/Transfusion/Family Hx Anesthesia History: Prior Anesthesia Without Reaction Family History of Anesthesia Reaction: No Transfusion History: Prior Transfusion Without Reaction - Review of Systems General: No Symptoms Pulmonary: No Symptoms Cardiovascular: No Symptoms Gastrointestinal: No Symptoms Neurological: No Symptoms Other: Reports: None - Physical Assessment NPO Status Date: 11/29/20 NPO Status Time: 00:01 Vital Signs: Last Vital Signs Temp 98.1 F 11/29/20 08:48 Pulse 61 11/29/20 08:48 Resp 16 11/29/20 08:48 BP 125/62 11/29/20 08:48 Pulse Ox 100 11/29/20 08:48 Height: 5 ft 3 in Weight: 146 lb ASA Class: 2 Mental Status: Alert & Oriented x3 Airway Class: Mallampati = 3 Dentition: Reports: Normal Dentition ROM/Head Extension: Limited/Partial Lungs: Clear to Auscultation, Normal Respiratory Effort Cardiovascular: Regular Rate, Regular Rhythm - Allergies Allergies/Adverse Reactions: Allergies Allergy/AdvReac Type Severity Reaction Status Date / Time No Known Allergies Allergy Verified 11/29/20 08:48 - Anesthesia Plan Pre-Op Medication Ordered: None - Acknowledgements Anesthesia Type Planned: General Anesthesia Pt an Appropriate Candidate for the Planned Anesthesia: Yes Alternatives and Risks of Anesthesia Discussed w Pt/Guardian: Yes Pt/Guardian Understands and Agrees with Anesthesia Plan: Yes Additional Comments: 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 -unknown location no cp, [place], sob with activity R cochlear implant tob none etoh rare bmi 27 most cervical vertebrae self fused - very limited extension, no UE radiculopathy narrow mandible, good mouth opening, mal 2-3 view umbilical hernia repair about 2014 here with no known problems bmi 27 par no questions cardiac echo may 2016 ef 65-70%, nl valves CT head nl PreAnesthesia Questionnaire - Past Health History Medical/Surgical History: Denies Medical/Surgical History HEENT History: Reports: Hard of Hearing, Other (See Below) Other HEENT History: wears glasses, deaf in right ear Cardiovascular History: Reports: Heart Murmur, Other (See Below) Other Cardiovascular History: 2016 - NSR on EKG. 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 Neurological History: Reports: Other (See Below) Other Neuro History: occasional motion sickness, has Raynauds disease in hands and feet Psychiatric History: Reports: None Endocrine/Metabolic History: Reports: Hyperthyroidism Other Endocrine/Metabolic History: Graves disease Hematologic History: Reports: Blood Transfusion(s) Immunologic History: Reports: None Oncologic (Cancer) History: Reports: None Dermatologic History: Reports: None - Infectious Disease History Infectious Disease History: Reports: Chicken Pox, MRSA, None - Past Surgical History Head Surgeries/Procedures: Reports: None HEENT Surgical History: Reports: Other (See Below) Other HEENT Surgeries/Procedures: Cochlear implant right side Cardiovascular Surgical History: Reports: Other (See Below) Other Cardiovascular Surgeries/Procedures: "hole" repaired in heart Respiratory Surgical History: Reports: None GI Surgical History: Reports: Other (See Below) Other GI Surgeries/Procedures: umbilical hernia repair Female Surgical History: Reports: None Endocrine Surgical History: Reports: None Neurological Surgical History: Reports: None Musculoskeletal Surgical History: Reports: None Oncologic Surgical History: Reports: None - SUBSTANCE USE Tobacco Use Status *Q: Never Tobacco User Recreational Drug Use History: No - HOME MEDS Home Medications: Home Meds methIMAzole [Methimazole] 10 mg PO QAM 04/21/14 [History] - CURRENT (IN HOUSE) MEDS Current Meds: Current Medications Lactated Ringer's (Ringers, Lactated) 1,000 mls @ 125 mls/hr IV ASDIRECTED [facility] Last Admin: 11/29/20 08:47 Dose: 125 mls/hr Documented by: Discontinued Medications Fentanyl (Fentanyl 100 Mcg/2 Ml Sdv) Confirm Administered Dose 100 mcg .ROUTE .STK-MED ONE Stop: 11/29/20 07:04 Midazolam HCl (Midazolam 1 Mg/Ml 2 Ml Sdv) Confirm Administered Dose 2 mg .ROUTE .STK-MED ONE Stop: 11/29/20 07:04 Propofol (Propofol 200 Mg/20 Ml Sdv) Confirm Administered Dose 200 mg .ROUTE .STK-MED ONE Stop: 11/29/20 07:04
[2020-11-29] MEDS ORDERED: Propofol 200 MG/20 ML SDV ONE (10:30)
--- NOTE | 2020-11-29 11:07 | PCM.OPNOTE ---
- General Post-Op/Procedure Note Date of Surgery/Procedure: 11/29/20 Operative Procedure(s): colonoscopy and polypectomy Findings: colon polyp dictation number [id number] Pre Op Diagnosis: changing bowel habits Post-Op Diagnosis: colon polyp Primary Surgeon: Francois Fajardo Pathology: colon polyp Complications: None Condition: Good
--- NOTE | 2020-11-29 11:12 | PCM.POSTAN ---
POST ANESTHESIA ASSESSMENT - MENTAL STATUS Mental Status: Alert (no anesthetic problems), Oriented - VITAL SIGNS Vital Signs: Last Vital Signs Temp 98.1 F 11/29/20 08:48 Pulse 65 11/29/20 11:07 Resp 12 11/29/20 11:07 BP 121/70 11/29/20 11:07 Pulse Ox 99 11/29/20 11:07 - RESPIRATORY Respiratory Status: Respiratory Rate WNL, Airway Patent, O2 Saturation Stable - CARDIOVASCULAR CV Status: Pulse Rate WNL, Blood Pressure Stable - GASTROINTESTINAL GI Status: No Symptoms - POST OP HYDRATION Hydration Status: Adequate & Stable
[2020-11-29 12:13] VITALS: BP 112/63; PULSE 57
--- NOTE | 2020-11-29 12:42 | PCM48HPAN ---
Post Anesthesia Note - EVALUATION WITHIN 48HRS OF ANESTHETIC Vital Signs in Normal Range: Yes Patient Participated in Evaluation: Yes Respiratory Function Stable: Yes Airway Patent: Yes Cardiovascular Function Stable: Yes Hydration Status Stable: Yes Pain Control Satisfactory: Yes Nausea and Vomiting Control Satisfactory: Yes Mental Status Recovered: Yes Vital Signs: Last Vital Signs Temp 98.1 F 11/29/20 11:15 Pulse 57 L 11/29/20 11:30 Resp 14 11/29/20 11:30 BP 112/63 11/29/20 11:30 Pulse Ox 100 11/29/20 11:30
--- NOTE | 2020-11-29 18:04 | OR ---
SURGEON: KENIA FORRESTER MD DATE OF PROCEDURE: 11/29/2020 PREOPERATIVE DIAGNOSIS: Changing bowel habits. POSTOPERATIVE DIAGNOSIS: Colon polyp. PROCEDURES PERFORMED: 1. Colonoscopy. 2. Hot snare polypectomy. PRIMARY SURGEON: Kenia Forrester MD ANESTHESIA: With the anesthesiologist. EXTENT OF THE COLONOSCOPY: To the cecum. BOWEL PREP: Excellent. LIMITATIONS: None. REASON FOR PROCEDURE: The patient is a pleasant 40-year-old female who has never had a colonoscopy before. She says occasionally she gets blood when she wipes. She denies any family history of colon cancer. For the last four or five months, she had noticed her stools had become formed, a little bit more narrow. She also says she often has to take a stool softener to help her to have a bowel movement. PROCEDURE IN DETAIL: Physical examination was performed. Major risks, benefits, and alternatives were explained to the patient in detail. The patient verbalized understanding and is in agreement of the same. The patient was connected to the appropriate devices and IV was started. EKG, pulse, pulse oximetry, blood pressure, and capnography were monitored throughout the procedure. Continuous oxygen and sedation were provided by the anesthesiologist. The patient was placed in left lateral decubitus position. Sedation began. After adequate sedation was achieved, a digital rectal exam was performed. No rectal masses or polyps felt. Now, a well-lubricated Olympus colonoscope was inserted into the rectum and advanced under direct visualization to the level of the cecum. Cecum was identified by both visual and anatomic landmarks. Photographs were taken of the cecal cap. The scope was then slowly withdrawn in a somewhat circular fashion looking at the color, texture, anatomy, and integrity of the mucosa from cecum to the anal canal. The patient had an excellent bowel prep. We did some minimal suction-irrigation for an excellent look at the mucosa. The patient had a small polyp in the rectal vault. This was removed with a hot snare polypectomy. Scope was retroflexed in the rectum. Scope was then completely removed and the procedure was terminated. ENDOSCOPIC DIAGNOSIS: Polyp right in the rectal vault. RECOMMENDATIONS: Followup colonoscopy will depend on pathology, but most likely she will need another one in five years or sooner if she develops signs and symptoms such as change in bowel habits or blood in stool. ALEXIS / VIKKI /[id number]
== END 2020-11-29 11:57 | disposition home or self-care (01) ==
LOC: MW.SDS 08:09
PROVIDERS: ATTEND Surgery
DX: D12.8 Benign neoplasm of rectum (principal)
CPT/HCPCS: 36415; 45385; 84703; 88305; J2250; J2704; J3010; J7120; 00811

== ENCOUNTER 2022-12-21 16:53 | Emergency (ER) | payer OTHER ==
[2022-12-21 17:07] VITALS: BP 141/84; PULSE 78
[2022-12-21 17:13] LABS: APPEARANCE,URINE CLEAR; BILIRUBIN,URINE NEGATIVE (NEGATIVE); COLOR,URINE YELLOW; GLUCOSE,URINE NEGATIVE (NEGATIVE); KETONES,URINE 15 mg/dL (NEGATIVE); LEUKOCYTE ESTERASE,URINE NEGATIVE (NEGATIVE); NITRITE,URINE NEGATIVE (NEGATIVE); OCCULT BLOOD,URINE MODERATE (NEGATIVE); PH,URINE 5.5 (5.0-8.0); PROTEIN,URINE NEGATIVE (NEGATIVE); UROBILINOGEN,URINE 0.2 EU/dL (<2.0)
[2022-12-21 17:20] LABS: BACTERIA,URINE FEW (NEGATIVE); EPITHELIAL CELLS,URINE FEW (NONE-FEW); SQUAMOUS EPITHELIAL CELLS,UR FEW; WBC,URINE NONE SEEN (0-5/HPF)
== END 2022-12-21 19:01 | disposition home or self-care (01) ==
LOC: MW.ED 16:53
DX: N85.2 Hypertrophy of uterus (principal)
CPT/HCPCS: 74176; 74176-26; 81001; 81025; 99284

== ENCOUNTER 2022-12-25 13:01 | Emergency (ER) | payer OTHER ==
[2022-12-25] MEDS ORDERED: Sodium Chloride 0.9% 2.5 ML Syringe FLUSH PRN (13:56)
[2022-12-25] MEDS ORDERED: Sodium Chloride 0.9% 10 ML Syringe FLUSH PRN (13:56)
[2022-12-25 15:43] VITALS: BP 104/62; PULSE 76
== END 2022-12-25 15:07 | disposition home or self-care (01) ==
LOC: MW.ED 13:01
DX: R42 Dizziness and giddiness (principal); H53.8 Other visual disturbances; Z91.011 Allergy to milk products
CPT/HCPCS: 93005; 99284

== ENCOUNTER 2023-12-09 00:15 | Emergency (ER) | payer SELFPAY ==
[2023-12-09] MEDS: Sodium Chloride 0.9% 1,000 ML IV ONE (00:49)
[2023-12-09] MEDS: Sodium Chloride 0.9% 2.5 ML Syringe FLUSH PRN (00:50)
[2023-12-09] MEDS: Sodium Chloride 0.9% 10 ML Syringe FLUSH PRN (00:50)
[2023-12-09 00:55] LABS: BASOPHILS ABSOLUTE AUTO 0.07 K/uL (0.00-0.20); BASOPHILS PERCENT AUTO 0.6 % (0.0-1.0); EOSINOPHILS ABSOLUTE AUTO 0.35 K/uL (0.00-0.45); EOSINOPHILS PERCENT AUTO 3.1 % (0.0-6.0); HEMATOCRIT 27.2 % (37.0-47.0); IMMATURE GRAN ABSOLUTE AUTO 0.04 K/uL (0.00-0.05); IMMATURE GRAN PERCENT AUTO 0.4 % (0.0-0.4); LYMPHOCYTES ABSOLUTE AUTO 3.31 K/uL (1.00-4.80); LYMPHOCYTES PERCENT AUTO 29.2 % (24.0-44.0); MEAN CORPUSCULAR HEMOGLOBIN 29.8 pg (28.0-32.0); MEAN CORPUSCULAR HGB CONC 33.1 g/dL (32.0-36.0); MEAN CORPUSCULAR VOLUME 90.1 fL (83.0-99.0); MEAN PLATELET VOLUME 9.1 fL (9.4-12.3); MONOCYTES ABSOLUTE AUTO 0.77 K/uL (0.00-0.80); MONOCYTES PERCENT AUTO 6.8 % (0.0-8.0); NEUTROPHILS ABSOLUTE AUTO 6.81 K/uL (1.80-7.70); NEUTROPHILS PERCENT AUTO 59.9 % (41.0-71.0); PLATELET COUNT,PLT 467 K/uL (150-400); RED BLOOD CELL COUNT 3.02 M/uL (4.10-5.30); WHITE BLOOD CELL COUNT,WBC 11.35 K/uL (3.9-11.3)
[2023-12-09 01:17] LABS: A/G RATIO 0.7 (0.9-1.6); ALBUMIN 3.3 g/dL (3.4-5.0); BILIRUBIN TOTAL 0.6 mg/dL (0.2-1.0); CALCIUM 9.1 mg/dL (8.5-10.1); CARBON DIOXIDE,CO2 25.6 mmol/L (21.0-32.0); EST CRCL DRUG DOSING (CG) 60.62 mL/min; POTASSIUM,K 3.8 mmol/L (3.5-5.1); PROTEIN TOTAL,TP 8.1 g/dL (6.4-8.2)
[2023-12-09 01:26] LABS: APPEARANCE,URINE SLT CLOUDY; BILIRUBIN,URINE NEGATIVE (NEGATIVE); GLUCOSE,URINE NEGATIVE (NEGATIVE); KETONES,URINE NEGATIVE (NEGATIVE); LEUKOCYTE ESTERASE,URINE SMALL (NEGATIVE); NITRITE,URINE NEGATIVE (NEGATIVE); OCCULT BLOOD,URINE TRACE-INTACT (NEGATIVE); PH,URINE 5.5 (5.0-8.0); PROTEIN,URINE NEGATIVE (NEGATIVE); UROBILINOGEN,URINE 0.2 EU/dL (<2.0)
[2023-12-09 01:32] LABS: COLOR,URINE DARK YELLOW
[2023-12-09 01:38] LABS: AMORPHOUS SEDIMENT,URINE FEW (NEGATIVE); BACTERIA,URINE FEW (NEGATIVE); EPITHELIAL CELLS,URINE FEW (NONE-FEW); MUCUS,URINE MANY (NONE-MOD); RBC,URINE 0-2 (0-2/HPF)
[2023-12-09] MEDS: HYDROmorphone 1 MG/ML Syringe IVPUSH ONE (02:04)
[2023-12-09] MEDS: Ondansetron 4 MG/2 ML SDV IVPUSH ONE (02:04)
[2023-12-09 03:00] VITALS: BP 139/83; PULSE 77
== END 2023-12-09 02:59 | disposition home or self-care (01) ==
LOC: MW.ED 00:15
DX: C48.0 Malignant neoplasm of retroperitoneum (principal); Z79.899 Other long term (current) drug therapy; Z91.018 Allergy to other foods; Z90.710 Acquired absence of both cervix and uterus; Z75.8 Other problems related to medical facilities and other health care
CPT/HCPCS: 36415; 80053; 81001; 85025; 96361; 96374; 96375; 99284; J1170; J2405; J3490; J7030

== ENCOUNTER 2023-12-24 12:37 | Emergency (ER) | payer SELFPAY ==
[2023-12-24 12:59] VITALS: BP 116/60; PULSE 79
== END 2023-12-24 13:17 | disposition home or self-care (01) ==
LOC: MW.ED 12:37
DX: T83.022A Displacement of nephrostomy catheter, initial encounter (principal)
CPT/HCPCS: 99282

== ENCOUNTER 2024-02-07 11:31 | Emergency (ER) | payer SELFPAY ==
[2024-02-07 12:40] LABS: BASOPHILS ABSOLUTE AUTO 0.16 K/uL (0.00-0.20); BASOPHILS PERCENT AUTO 1.9 % (0.0-1.0); EOSINOPHILS ABSOLUTE AUTO 0.94 K/uL (0.00-0.45); EOSINOPHILS PERCENT AUTO 11.3 % (0.0-6.0); HEMATOCRIT 35.1 % (37.0-47.0); HEMOGLOBIN 11.4 g/dL (12.0-16.0); IMMATURE GRAN ABSOLUTE AUTO 0.04 K/uL (0.00-0.05); IMMATURE GRAN PERCENT AUTO 0.5 % (0.0-0.4); LYMPHOCYTES ABSOLUTE AUTO 1.94 K/uL (1.00-4.80); LYMPHOCYTES PERCENT AUTO 23.2 % (24.0-44.0); MEAN CORPUSCULAR HEMOGLOBIN 29.3 pg (28.0-32.0); MEAN CORPUSCULAR HGB CONC 32.5 g/dL (32.0-36.0); MEAN CORPUSCULAR VOLUME 90.2 fL (83.0-99.0); MEAN PLATELET VOLUME 9.3 fL (9.4-12.3); MONOCYTES ABSOLUTE AUTO 0.95 K/uL (0.00-0.80); MONOCYTES PERCENT AUTO 11.4 % (0.0-8.0); NEUTROPHILS ABSOLUTE AUTO 4.32 K/uL (1.80-7.70); NEUTROPHILS PERCENT AUTO 51.7 % (41.0-71.0); PLATELET COUNT,PLT 359 K/uL (150-400); RED BLOOD CELL COUNT 3.89 M/uL (4.10-5.30); WHITE BLOOD CELL COUNT,WBC 8.35 K/uL (3.9-11.3)
[2024-02-07 13:04] LABS: LACTIC ACID 0.9 mmol/L (0.4-2.0)
[2024-02-07 13:11] LABS: A/G RATIO 0.9 (0.9-1.6); ALBUMIN 3.8 g/dL (3.4-5.0); BILIRUBIN TOTAL 0.3 mg/dL (0.2-1.0); CALCIUM 9.4 mg/dL (8.5-10.1); CARBON DIOXIDE,CO2 28.8 mmol/L (21.0-32.0); CREATININE 0.8 mg/dL (0.6-1.0); EST CRCL DRUG DOSING (CG) 75.78 mL/min; POTASSIUM,K 3.7 mmol/L (3.5-5.1); PROTEIN TOTAL,TP 8.1 g/dL (6.4-8.2)
[2024-02-07] MEDS: Cephalexin 500 MG Cap PO ONE (14:01)
[2024-02-07 15:05] VITALS: BP 116/75; PULSE 88
== END 2024-02-07 14:07 | disposition home or self-care (01) ==
LOC: MW.ED 11:31
DX: L08.9 Local infection of the skin and subcutaneous tissue, unspecified (principal); R74.01 Elevation of levels of liver transaminase levels; Z88.6 Allergy status to analgesic agent; Z91.011 Allergy to milk products; Z75.8 Other problems related to medical facilities and other health care
CPT/HCPCS: 36415; 80053; 83605; 85025; 87040; 99283; A9270

== ENCOUNTER 2024-04-02 10:46 | Emergency (ER) | payer SELFPAY ==
[2024-04-02] MEDS: Morphine 2 MG/ML SYRINGE IVPUSH ONE ×3 (11:59→15:00)
[2024-04-02] MEDS: Ondansetron 4 MG/2 ML SDV IVPUSH ONE (11:59)
[2024-04-02 12:11] LABS: HEMATOCRIT 29.3 % (37.0-47.0); HEMOGLOBIN 9.7 g/dL (12.0-16.0); MEAN CORPUSCULAR HEMOGLOBIN 28.3 pg (28.0-32.0); MEAN CORPUSCULAR HGB CONC 33.1 g/dL (32.0-36.0); MEAN CORPUSCULAR VOLUME 85.4 fL (83.0-99.0); PLATELET COUNT,PLT 109 K/uL (150-400); RED BLOOD CELL COUNT 3.43 M/uL (4.10-5.30)
[2024-04-02 12:28] LABS: A/G RATIO 0.8 (0.9-1.6); ALBUMIN 3.2 g/dL (3.4-5.0); BILIRUBIN TOTAL 0.5 mg/dL (0.2-1.0); CALCIUM 8.7 mg/dL (8.5-10.1); CARBON DIOXIDE,CO2 26.7 mmol/L (21.0-32.0); CREATININE 0.7 mg/dL (0.6-1.0); EST CRCL DRUG DOSING (CG) 86.6 mL/min; PROTEIN TOTAL,TP 7.1 g/dL (6.4-8.2)
[2024-04-02 12:57] LABS: BAND ABSOLUTE MAN 0.11; BAND PERCENT MAN 5 %; BASOPHILS ABSOLUTE MAN 0.06 K/uL (0.00-0.20); BASOPHILS PERCENT MAN 3 % (0-1); EOSINOPHILS ABSOLUTE MAN 0.06 K/uL (0.00-0.45); EOSINOPHILS PERCENT MAN 3 % (0-6); LYMPHOCYTES PERCENT MAN 38 % (24-44); MONOCYTES ABSOLUTE MAN 0.13 K/uL (0.00-0.80); MONOCYTES PERCENT MAN 6 % (0-8); SEG NEUTROPHILS ABSOLUTE MAN 0.95 K/uL (1.80-7.70); SEG NEUTROPHILS PERCENT MAN 45 % (41-71)
[2024-04-02] MEDS: Iopamidol 755 MG/ML 500 ML Multipack Bottle IVPUSH STA (13:09)
[2024-04-02] MEDS: Sodium Chloride 0.9% 1,000 ML IV ONE (13:32)
[2024-04-02] MEDS: droPERidol 5 MG/2 ML SDV IVPUSH ONE ×2 (14:39→16:40)
[2024-04-02 14:48] LABS: APPEARANCE,URINE CLEAR; BILIRUBIN,URINE NEGATIVE (NEGATIVE); COLOR,URINE YELLOW; GLUCOSE,URINE NEGATIVE (NEGATIVE); KETONES,URINE NEGATIVE (NEGATIVE); LEUKOCYTE ESTERASE,URINE NEGATIVE (NEGATIVE); NITRITE,URINE NEGATIVE (NEGATIVE); OCCULT BLOOD,URINE LARGE (NEGATIVE); PH,URINE 7.5 (5.0-8.0); PROTEIN,URINE TRACE mg/dL (NEGATIVE); UROBILINOGEN,URINE 0.2 EU/dL (<2.0)
[2024-04-02 15:19] LABS: BACTERIA,URINE NOT SEEN (NEGATIVE); EPITHELIAL CELLS,URINE RARE (NONE-FEW); WBC,URINE 0-1 (0-5/HPF)
[2024-04-02] MEDS: Lidocaine 4% 1 each Patch TOP STA (16:32)
[2024-04-02 17:58] VITALS: BP 133/69; PULSE 87
== END 2024-04-02 17:57 | disposition home or self-care (01) ==
LOC: MW.ED 10:46
DX: D70.9 Neutropenia, unspecified (principal); M54.9 Dorsalgia, unspecified; Z79.899 Other long term (current) drug therapy; Z91.011 Allergy to milk products; Z88.5 Allergy status to narcotic agent; Z75.8 Other problems related to medical facilities and other health care
CPT/HCPCS: 36415; 74177; 80053; 81001; 83690; 83735; 85025; 96361; 96374; 96375; 96376; 99284; A9270; J1642; J1790; J2270; J2405; J7030; Q9967